=== PATIENT | male | born 1950 | race Caucasian/White ===

== ENCOUNTER 2017-11-15 12:58 | Emergency (ER) | payer MEDICARE ==
[2017-11-15 13:15] LABS: #Basophils 0.1 thou/uL (0.0-0.2); #Eosinphils 0.1 thou/uL (0.0-0.7); #Lymphocytes 3.3 thou/uL (1.20-3.40); #Monocytes 0.9 thou/uL (0.11-0.59); %Basophils 1.3 % (0.0-1.0); %Eosinophils 0.8 % (0.0-10.0); %Lymphocytes 35.5 % (21.0-51.0); %Monocytes 9.6 % (0.0-10.0); %Neutrophils 52.9 % (42.0-75.0); Hemoglobin 13.9 g/dL (14.0-18.0); Mean Corpuscular HGB CONC 35.6 g/dL (32.0-36.0); Mean Corpuscular Hemoglobin 29.4 pg (27.0-31.0); Mean Corpuscular Volume 82.7 fL (78.0-98.0); Mean Platelet Volume 5.5 fL (7.4-10.4); Platelet Count 300 thou/uL (130-400); Red Blood Cell (RBC) Count 4.74 mill/uL (4.70-6.10); White Blood Cell (WBC) Count 9.4 thou/uL (4.8-10.8)
[2017-11-15 13:21] LABS: PTT 28.6 SEC (22.9-36.1); Prothrombin Time 13.4 SEC (12.0-14.7)
[2017-11-15 13:30] LABS: ALT (SGPT) 23 U/L (8-55); AST (SGOT) 30 U/L (5-34); Albumin 4.5 g/dL (3.4-4.8); Alkaline Phosphatase 47 U/L (40-150); Anion Gap 19 mmol/L (10-20); BUN (Urea Nitrogen) 20 mg/dL (8.4-25.7); Bilirubin, Total 1.1 mg/dL (0.2-1.2); Calc. Creatinine Clearance 0 mL/min (70-130); Calcium 9.7 mg/dL (7.8-10.44); Carbon Dioxide 18 mmol/L (23-31); Chloride 108 mmol/L (98-107); Estimated GFR-MDRD 40; Globulin 3.5 g/dL (2.4-3.5); Glucose 116 mg/dL (80-115); Lipase 27 U/L (8-78); Potassium 3.7 mmol/L (3.5-5.1); Sodium 141 mmol/L (136-145)
[2017-11-15 13:33] LABS: CKMB 4.8 ng/mL (0-6.6); Troponin I Less than 0.010 ng/mL (< 0.028)
[2017-11-15] MEDS ORDERED: Lidocaine 1% w/Epinephrine 1:100K 30 ML VIAL ONE (13:39)
[2017-11-15 15:10] LABS: Bilirubin Negative (Negative); Clarity Clear (Clear); Glucose, Urine (Dipstick) Negative (Negative); Leukocyte Negative (Negative); Nitrite Negative (Negative); Protein, Urine (Dipstick) 30 mg/dL (Neg-Trace); Specific Gravity, Urine 1.015 (1.005-1.030); Urobilinogen 0.2 mg/dL (0.2-1.0); pH, Urine 7.5 (5.0-9.0)
[2017-11-15 15:11] LABS: Blood, Urine Small (Negative)
[2017-11-15 15:13] LABS: Bacteria/HPF 1+ HPF (None Seen); Crystals/HPF 1+ AMORPH PHOS HPF (Negative); Squamous Epithelial 0-3 HPF (0-3); WBC/HPF 0-3 HPF (0-3)
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
--- NOTE | 2017-11-15 15:30 | CT ---
CT CHEST WITH CONTRAST CT ABDOMEN WITH CONTRAST CT PELVIS WITH CONTRAST LIMITED CT THORACIC SPINE WITH CONTRAST LIMITED CT LUMBOSACRAL SPINE WITH CONTRAST: Date: 11/15/17 HISTORY: Trauma FINDINGS: There is a 5.0 mm nodule in the posterior segment of left upper lobe. No pneumothorax or effusion. Thyroid is unremarkable. There are mildly prominent mediastinal lymph nodes. AP window lymph node kayode sures up to 1.0 cm. Smaller right paratracheal lymph nodes measure up to 6.0 mm in short axis. No pericardial effusion. Liver is unremarkable. No dilated loops of large or small bowel. There is a small amount of fluid in the left perinephric space posteriorly adjacent to a deformed cyst. This kayode sures fluid attenuation and not hemorrhage. Multiple bilateral renal cysts. Aortoiliac contour is nonaneurysmal. Spleen is unremarkable. Pancreas is without injury. Liver and gallbladder are normal. No retroperitoneal adenopathy. The sternum and manubrium are intact. No compression fracture of the thoracic or lumbar spine. Bilate ral L5 pars interarticular defects. 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 The osseous pelvis is intact. No acute fracature. The lumbar spine transverse pr ocesses are without fracture. No displaced rib fracture. IMPRESSION: 1. Trace fluid left perinephric space adjacent to a deformed cyst suggesting cyst rupture. No other traumatic abnormality in the chest, abdomen, or pelvis. No solid organ injury. 2. Incidental note of pars interarticular defects bilaterally at L5 without significant listhesis. 3. L5 lumbosacral transitional vertebra. POS: [facility]
[2017-11-15] MEDS ORDERED: Adacel (T-DAP) 0.5 ML VIAL ONE (15:41)
== END 2017-11-15 16:14 | disposition home or self-care (01) ==
LOC: BURERS 12:58
DX: S01.81XA Laceration without foreign body of other part of head, initial encounter (principal); S01.01XA Laceration without foreign body of scalp, initial encounter; R31.9 Hematuria, unspecified; Z23 Encounter for immunization; V89.2XXA Person injured in unspecified motor-vehicle accident, traffic, initial encounter
CPT/HCPCS: 12013; 70450; 71260; 74177; 80053; 81003; 81015; 82553; 83690; 84484; 85025; 85610; 85730; 87086; 90471; 90715; 93005; 94760; G0390; J2001